=== PATIENT | male | born 1960 | race African-American/Black ===

== ENCOUNTER 2017-11-02 22:25 | Emergency (ER) | payer OTHER ==
[2017-11-02] MEDS ORDERED: MAGNESIUM SULF 50% (8.12 MEQ/2 ML-1 GM VIAL) IVPB ONE (22:41)
[2017-11-02] MEDS ORDERED: ALBUTEROL SO4 2.5/IPRATROPIUM 0.5 INH SOL 3 ML VIAL.NEB. NEB ONE ×3 (22:41→23:16)
[2017-11-02] MEDS ORDERED: ASPIRIN 325 MG TABLET PO ONE (22:41)
[2017-11-02 22:43] VITALS: BP 155/93; PULSE 68; TEMP 98.4; BMI 22.1
[2017-11-02] MEDS ORDERED: DEXAMETHASONE SOD PHOSPHATE 10 MG/1 ML VIAL ONE (22:47)
--- NOTE | 2017-11-02 22:49 | PDOC ---
History of Present Illness - General Chief Complaint: Syncope/Near Syncope Stated Complaint: SYNCOPE Time Seen by Provider: 11/02/17 22:34 History Source: Patient, EMS Exam Limitations: No Limitations - History of Present Illness Initial Comments: This is a 57 YOM with h/o COPD (never intubated or admitted to ICU, takes Symbicort and prn Albuterol with neb at home, also has Rx for prn Prednisone and has been taking it for the past few days d/t worsening SOB) and flu 2 weeks ago (states resolved) who was BIBA for syncope and subsequent SOB/wheezing/ chest tightness. The states that her was watching the Super[employer]l just [employer] and he randomly passed out without any preceding symptoms (no SOB, lightheadedness, chest pain, palpitations, or any other symptoms). He had a witnessed atraumatic slump to the ground and per the did not hit his head. The notes that he tensed all his muscles, but had no jerking movements, and he was unresponsive for an estimated 2 minutes. When he regained consciousness, he was acting per his normal baseline and was not confused. However, he did had SOB, wheezing, leg cramping, leg tingling, and chest tightness (5/10 constant non-radiating substernal). EMS placed him on 12 liters O2 and subsequently measured his pulse ox to be 97%. They found him to be wheezy and gave him a total of 3 Combi-Vents and 10 mg Decadron. Past History - Past Medical History Allergies/Adverse Reactions: Allergies Allergy/AdvReac Type Severity Reaction Status Date / Time No Known Allergies Allergy Verified 11/02/17 22:32 Home Medications: Ambulatory Orders Albuterol Sulfate Inhaler - [Ventolin Hfa *Inhaler*] 2 inh IH Q4H PRN 11/21/11 Ipratropium/Albuterol Sulfate [Duoneb 0.5 mg-3 mg/3 ml Soln] 3 ml NEB BID PRN Prednisone [Deltasone -] 60 mg PO ONCE #7 tablet 11/21/11 Asthma: Yes - Suicide/Smoking/Psychosocial Hx Smoking Status: Yes Smoking History: Unknown if ever smoked Have you smoked in the past 12 months: No Number of Cigarettes Smoked Daily: 2 Information on smoking cessation initiated: No Hx Alcohol Use: No Drug/Substance Use Hx: No Review of Systems - Review of Systems Able to Perform ROS?: Yes Constitutional: No: Chills, Fever, Unexplained wgt Loss HEENTM: No: Nose Congestion, Throat Pain Respiratory: Yes: Cough, Shortness of Breath, Wheezing, Productive cough. No: Stridor Cardiac (ROS): Yes: Chest Pain, Syncope. No: Edema, Palpitations ABD/GI: No: Constipated, Diarrhea, Nausea, Vomiting : No: Burning, Dysuria Musculoskeletal: Yes: Other (leg cramps (both)). No: Back Pain, Neck Pain Integumentary: No: Bruising, Rash Neurological: Yes: Headache, Tingling (both legs). No: Numbness, Weakness, Dizziness Endocrine: No: Unexplained Weight Gain, Unexplained Weight Loss *Physical Exam - Vital Signs Last Vital Signs Temp Pulse Resp BP Pulse Ox 98.4 F 68 24 155/93 100 11/02/17 22:32 11/02/17 22:32 11/02/17 22:32 11/02/17 22:32 11/02/17 22:32 Heart Score/ECG Review - History History: Moderately suspicious - Electrocardiogram EKG: Non specific repolarization disturbance - Age Age: 45-65 - Risk Factors Risk Factors Heart Score: Yes Smoking History Based on the list above the patient has:: 1-2 risk factors Medical Decision Making - Medical Decision Making This is a 57 YOM with h/o COPD who p/w syncope and subsequent SOB, wheezing, and chest tightness. On exam BP is 155/93 otherwise VS wnl, on non-rebreather at 12 L initially, diffuse bilateral exp wheezing, wet cough. DDX IBNLT COPD exacerbation, CHF exacerbation, PNA/bronchitis, ACS, arrhythmia, , PE, PTX, atelectasis, etc. Ordered is CBCD CMP Mg Coags T&S Cardiac panel BNP D-dimer UA Cx UDS ABG Cx EKG CXR Head CT DuoNebx3, Mg Sulf. 11/02/17 23:07 EKG with some anterior ST segment abnormalities not meeting 1mm box criteria for WALE but will give Pt NTG SL. Will repeat EKG in 20 min. 11/02/17 23:42 EKG is being repeated. Patient is adamantly refusing any blood draw. Counseled by multiple ED staff including myself that he could be having a serious heart issue and we need labs. He continues to refuse, says he does not do needles, does not want the pain. Will do as much for the patient as possible without the bloodwork. SOB had improved and he is not on supplemental O2 at this time. *DC/Admit/Observation/Transfer - Referrals Referrals: Jose Mei [Primary Care Provider] - - Patient Instructions - Post Discharge Activity
[2017-11-02] MEDS ORDERED: NITROGLYCERIN SUBLINGUAL 1/200 0.3 MG BTL SL ONE (23:11)
[2017-11-02] MEDS ORDERED: ASPIRIN 325 MG TABLET ONE (23:16)
[2017-11-02] MEDS ORDERED: MAGNESIUM SULF 50% (8.12 MEQ/2 ML-1 GM VIAL) ONE (23:16)
--- NOTE | 2017-11-03 00:35 | PDOC ---
*Physical Exam - Vital Signs Last Vital Signs Temp Pulse Resp BP Pulse Ox 98.4 F 68 24 155/93 100 11/02/17 22:32 11/02/17 22:32 11/02/17 22:32 11/02/17 22:32 11/02/17 22:32 ED Treatment Course - LABORATORY CBC & Chemistry Diagram: 11/03/17 00:15 11/03/17 00:15 - Medications Given in the ED: ED Medications Discontinued Medications Generic Name Dose Route Start Last Admin Trade Name Jaquelin PRN Reason Stop Dose Admin Albuterol/Ipratropium 3 amp 11/02/17 22:41 11/02/17 23:57 Duoneb - NEB 11/02/17 22:42 3 amp ONCE ONE Administration Aspirin 325 mg 11/02/17 22:41 11/02/17 23:57 Asa - PO 11/02/17 22:42 325 mg ONCE ONE Administration Magnesium Sulfate 2 gm 11/02/17 22:41 11/02/17 23:57 Magnesium Sulfate IVPB 11/02/17 22:42 2 gm ONCE ONE Administration Nitroglycerin 0.3 mg 11/02/17 23:11 11/02/17 23:58 Nitrostat - SL 11/02/17 23:12 0.3 mg ONCE ONE Administration Medical Decision Making - Medical Decision Making 11/03/17 00:36 Patient signed out by Dr. Perrin. Patient is a 57 y.o. male who presents with a witnessed collapse with 2 minutes of LOC - possibly arrthymia vs. DC vs.neurogenic CT Head, labs pending. *DC/Admit/Observation/Transfer - Discharge Dispostion Disposition: AGAINST MEDICAL ADVICE Condition at time of disposition: Good Admit: No - Referrals Referrals: Jose Mei [Primary Care Provider] - - Patient Instructions Printed Discharge Instructions: DI for Syncope in Adults (Fainting) Additional Instructions: You are leaving [place], [place] against medical advice. The risks of your leaving before full medical evaluation include heart attack, seizure, coma and . Return to the hospital should you experience any new/concerning/worsening symptoms. - Post Discharge Activity
[2017-11-03 00:43] LABS: BASO % 0.3 % (0-2.0); EOS % 0.2 % (0-4.5); HEMATOCRIT 42.7 % (35.4-49); MCH 27.9 pg (25.7-33.7); MCHC 32.7 g/dl (32.0-35.9); MEAN CELL VOLUME 85.4 fl (80-96); MEAN PLT VOLUME 9.3 fl (7.5-11.1); MONO % 2.3 % (3.8-10.2); NEUT % 91.2 % (42.8-82.8); PLATELET COUNT 229 K/MM3 (134-434); WHITE BLOOD COUNT 6.2 K/mm3 (4.0-10.0)
[2017-11-03 01:04] LABS: INR 1.05 (0.82-1.09); PROTHROMBIN TIME (PATIENT) 11.9 SEC (9.98-11.88)
[2017-11-03 01:19] LABS: URINE APPEARANCE CLEAR; URINE BILIRUBIN NEGATIVE (NEGATIVE); URINE BLOOD NEGATIVE (NEGATIVE); URINE COLOR STRAW; URINE GLUCOSE (UA) NEGATIVE (NEGATIVE); URINE KETONE NEGATIVE (NEGATIVE); URINE LEUK ESTERASE NEGATIVE (NEGATIVE); URINE NITRITE NEGATIVE (NEGATIVE); URINE PROTEIN NEGATIVE (NEGATIVE)
[2017-11-03 01:23] LABS: ALBUMIN 3.7 g/dl (3.4-5.0); ANION GAP 5 (8-16); BILIRUBIN,TOTAL 0.3 mg/dL (0.2-1.0); BLOOD UREA NITROGEN 16 mg/dL (7-18); CALCIUM 8.5 mg/dL (8.5-10.1); CHLORIDE 106 mmol/L (98-107); CO2 31 mmol/L (21-32); CREATININE 1.3 mg/dL (0.7-1.3); GLUCOSE,RANDOM 104 mg/dL (74-106); MAGNESIUM 2.2 mg/dL (1.8-2.4); POTASSIUM 3.8 mmol/L (3.5-5.1); SGOT/AST 16 U/L (15-37); SGPT/ALT 16 U/L (12-78); SODIUM 142 mmol/L (136-145); TOT PROT 6.8 g/dl (6.4-8.2)
[2017-11-03 01:26] LABS: ALK PHOS 97 U/L (45-117)
--- NOTE | 2017-11-03 01:29 | PDOC ---
Attending Attestation - Resident Resident Name: AydinDorota - ED Attending Attestation I have performed the following: I have examined & evaluated the patient, The case was reviewed & discussed with the resident, I agree w/resident's findings & plan, Exceptions are as noted - HPI HPI: 11/03/17 01:28 57 yo male BIBA after his witnessed a syncopal episode - Physicial Exam PE: 11/03/17 01:29 Thin 57 yo male p/w complaint of chest pain head ncat neck supple lungs cta b/l cvs [id number] abd nontender ext no pitting edema neuro axox3,no gross focal deficits skin warm,dry psych pt upset that he needs blood work ,the paramedics placed heplock and he doesn't want to be "stuck" again - Medical Decision Making 11/03/17 01:31 ct head no acute intracranial pathology 11/03/17 02:16 pt refusing any further intervention,wants to leave AMA
[2017-11-03 01:35] LABS: METHADONE, UR NEGATIVE ng/ml (CUTOFF=300); OPIATES, URI NEGATIVE ng/ml (CUTOFF=300); PHENCYCLIDINE,URINE NEGATIVE ng/ml (CUTOFF=25); URINE AMPHETAMINES NEGATIVE ng/ml (CUTOFF=500); URINE BARBITURATES NEGATIVE ng/ml (CUTOFF=200); URINE BENZODIAZEPINES NEGATIVE ng/ml (CUTOFF=200)
[2017-11-03 01:36] LABS: COCAINE, UR POSITIVE ng/ml (CUTOFF=300)
--- NOTE | 2017-11-03 12:43 | EKG ---
Test Reason : Blood Pressure : / mmHG Vent. Rate : 069 BPM Atrial Rate : 069 BPM P-R Int : 124 ms QRS Dur : 106 ms QT Int : 428 ms P-R-T Axes : 077 075 052 degrees QTc Int : 458 ms NORMAL SINUS RHYTHM NONSPECIFIC T WAVE ABNORMALITY ABNORMAL ECG WHEN COMPARED WITH ECG OF 02-NOV-2017 22:48, NO SIGNIFICANT CHANGE WAS FOUND Confirmed by CHINO CHRISTINA MD ([id number]) on 11/03/2017 12:43:14 PM Referred By: Confirmed By:CHINO CHRISTINA MD
== END 2017-11-03 03:00 | disposition left against medical advice (07) ==
LOC: JER 22:25
PROC: 3E0F7GC Introduction of Other Therapeutic Substance into Respiratory Tract, Via Natural or Artificial Opening (ICD-10-PCS; principal; 2017-11-02)
PROC: 3E033GC Introduction of Other Therapeutic Substance into Peripheral Vein, Percutaneous Approach (ICD-10-PCS; 2017-11-02)
DX: R55 Syncope and collapse (principal)
CPT/HCPCS: 36415; 70450-TC; 71045-TC; 80053; 80307; 81003; 82550; 82553; 83735; 83880; 84484; 85025; 85379; 85610; 86850; 86900; 86901; 93005; 93010; 94640; 96374; 99281-25

== ENCOUNTER 2019-04-18 21:55 | Emergency (ER) | payer OTHER ==
[2019-04-18] MEDS ORDERED: ONDANSETRON 4 MG/2 ML VIAL IVPUSH ONE (22:22)
[2019-04-18] MEDS ORDERED: SODIUM CHLORIDE 0.9% 500 ML INFUS.BAG IV ONE (22:22)
[2019-04-18] MEDS ORDERED: METHOCARBAMOL 500 MG TABLET PO ONE (22:30)
[2019-04-18] MEDS ORDERED: IBUPROFEN 600 MG TABLET (FP) PO ONE ×2 (22:30→23:31)
[2019-04-18] MEDS ORDERED: DEXAMETHASONE LIQUID 0.5 MG/5 ML 240 ML BULK BOTTLE PO ONE (22:31)
[2019-04-18] MEDS ORDERED: ALBUTEROL SO4 2.5/IPRATROPIUM 0.5 INH SOL 3 ML VIAL.NEB. NEB ONE ×2 (22:31→23:30)
--- NOTE | 2019-04-18 23:24 | PDOC ---
History of Present Illness - General Stated Complaint: GENERALIZED PAIN,WEAKNESS Time Seen by Provider: 04/18/19 22:12 History Source: Patient, Spouse Exam Limitations: No Limitations - History of Present Illness Initial Comments: 04/18/19 23:19 58YOM with h/o COPD, asthma, and sciatica who p/w nausea, vomiting (states unable to keep anything down), worsening head-to-toe body aches, exacerbated chronic cough and SOB, right thigh pain similar to his prior sciatica, generalized weakness, headache, and lightheadedness worsening for the past several days. He notes having used his normal breathing treatments at home without change in his breathing status. He has been getting lightheaded particularly on standing. He denies any new f/c, diarrhea, constipation, chest pain, abdominal pain, new back pain, dysuria, n/t/w focally, or other new symptoms. Past History - Past Medical History Allergies/Adverse Reactions: Allergies Allergy/AdvReac Type Severity Reaction Status Date / Time No Known Allergies Allergy Verified 04/19/19 01:07 Home Medications: Ambulatory Orders Albuterol Sulfate Inhaler - [Ventolin Hfa *Inhaler*] 2 inh IH Q4H PRN 11/21/11 Ipratropium/Albuterol Sulfate [Duoneb 0.5 mg-3 mg/3 ml Soln] 3 ml NEB BID PRN predniSONE [Deltasone -] 60 mg PO ONCE #7 tablet 11/21/11 Aspirin 81 mg PO DAILY 04/19/19 Atorvastatin Ca [Lipitor] 10 mg PO HS 04/19/19 Fluticasone/Umeclidin/Vilanter [Trelegy Ellipta 100-62.5-25] 1 each IH DAILY Multivit with Iron,Minerals [Complete Senior] 1 each PO DAILY 04/19/19 Primidone 50 mg PO DAILY 04/19/19 Roflumilast [Daliresp -] 500 mcg PO DAILY 04/19/19 Asthma: Yes - Suicide/Smoking/Psychosocial Hx Smoking Status: Yes Smoking History: Unknown if ever smoked Have you smoked in the past 12 months: No Number of Cigarettes Smoked Daily: 2 Hx Alcohol Use: No Drug/Substance Use Hx: No Review of Systems - Review of Systems Able to Perform ROS?: Yes Comments:: 04/18/19 23:22 GEN: malaise, generalized weakness, no fever, chills, or weight change HEENT: no ear pain, sore throat, vision change, or eye pain CV: lightheadedness, no chest pain, palpitations, syncope, or edema RESP: cough, wheezing, SOB GI: nausea, vomiting, no abdominal pain, diarrhea, constipation, or white/black/ bloody stool : no dysuria, hematuria, incontinence, retention, bleeding, or discharge MSK: right thigh pain/sciatica, no neck/back pain, muscle weakness/pain, or joint swelling/pain NEURO: headache, no seizure, vertigo, numbness, tingling, or focal weakness PSYCH: no substance use, no behavior change SKIN: no jaundice, no rash ROS otherwise negative except as noted in HPI *Physical Exam - Physical Exam Comments: 04/18/19 23:23 GENERAL: nontoxic-appearing, A/Ox4, no distress, answers questions appropriately , accompanied by HEENT: PERRLA, EOMI, a bit dry mucous membranes NECK/BACK: no midline ttp, no spinal stepoff or deformity, no hematoma, full ROM , neck supple CARDIOVASCULAR: regular rate/rhythm, normal S1S2, no MGR, strong peripheral pulses, capillary refill <2 seconds, extremities wwp, no edema LUNGS/RESPIRATORY: no respiratory distress, diffuse faint expiratory wheezes GI/ABDOMEN: symmetric [id number], normoactive BS, soft, no ttp, no midline pulsatile masses : no CVA tenderness EXTREMITIES: no muscle atrophy, no acute deformity SKIN: warm and dry, no pallor, no jaundice, no rash, no bruising, no skin breakdown, no cuts, no lesions NEUROLOGICAL: GCS 15, CN II-XII grossly intact, 5/5 strength proximally and distally, no facial droop, gait not tested ED Treatment Course - LABORATORY CBC & Chemistry Diagram: 04/18/19 23:40 04/18/19 23:40 - RADIOLOGY Radiology Studies Ordered: Category Date Time Status CHEST X-RAY PORTABLE* [RAD] Stat Radiology 04/18/19 22:22 Ordered Medical Decision Making - Medical Decision Making 04/18/19 23:24 58YOM with h/o COPD and asthma who p/w several complaints including n/v, SOB/ cough/wheezing, body aches, and headache. Exam: As noted in Physical Exam section. DDX IBNLT: COPD exacerbation, bronchitis, PNA, viral URI, viral GI syndrome, UTI W/U ordered: Labs as noted below, EKG, CXR TX ordered: IVF, Motrin EKG: Reviewed; results as noted in ECG Review section. CXR: Possible early RLL consolidation Laboratory Tests 04/18/19 04/18/19 04/18/19 23:40 23:40 23:40 WBC 5.8 RBC 5.38 Hgb 14.8 Hct 44.7 MCV 83.1 MCH 27.5 MCHC 33.1 RDW 14.8 Plt Count 250 MPV 9.7 Absolute Neuts (auto) 4.2 Neutrophils % 71.5 D Lymphocytes % 15.9 D Monocytes % 11.5 H D Eosinophils % 0.6 D Basophils % 0.5 Nucleated RBC % 0 Sodium 142 Potassium 3.9 Chloride 110 H Carbon Dioxide 24 Anion Gap 8 BUN 14.6 Creatinine 1.1 Est GFR (CKD-EPI)AfAm 86.52 Est GFR (CKD-EPI)NonAf 74.65 Random Glucose 103 Calcium 8.7 Magnesium 2.1 Total Bilirubin 0.6 AST 16 ALT 18 Alkaline Phosphatase 87 Creatine Kinase 144 Troponin I < 0.02 B-Natriuretic Peptide 108.5 Total Protein 7.1 Albumin 3.9 Reassessment: Patient states feels better, comfortable with plan to go home. DISCHARGE This patient has gotten significant relief of symptoms while in the ED. On last reassessment, vitals are wnl, pain is reasonably controlled, and exam is benign. Workup is not concerning for emergency-level pathology at this time. This patient is appropriate for discharge with close outpatient follow up. Azithromycin first dose has been given in the ED and E-Rx sent. The family is comfortable with this plan and will follow up with their primary care provider in 1-3 days. They agree to return to the ED with any new/worsening symptoms. Specific return precautions are discussed and they will come back to the ER if necessary. *DC/Admit/Observation/Transfer Diagnosis at time of Disposition: COPD exacerbation, Bronchitis Sciatica Qualifiers: Laterality: right Qualified Code(s): M54.31 - Sciatica, right side - Discharge Dispostion Disposition: HOME Condition at time of disposition: Stable Decision to Admit order: No - Prescriptions Prescriptions: Azithromycin [Zithromax Tri-Frank (3 DAYS) -] 500 mg PO DAILY #3 tablet Ibuprofen [Motrin -] 600 mg PO TID #21 tablet - Referrals Referrals: [facility] [Provider Group] - Patient Instructions Additional Instructions: You were seen in the ER for headache, shortness of breath, cough, head-to-toe body aches, and right leg pain. We did an exam, imaging studies, and an electrocardiogram. We believe you may have an early pneumonia and we gave you the first dose of antibiotics here in the ER. We sent the prescription for the remaining course of antibiotic to your pharmacy. Please take these antibiotics as prescribed, whether or not you feel better. After our assessment, we do not believe you are having a medical emergency at this time, and we believe you are safe to go home. Please follow up with your primary care provider in 1-3 days. Call their clinic, tell them you were seen in the er, and tell them you need a follow-up. If you have any new or worsening symptoms, please come back to the ER at any time (24 hours a day). If you are having severe or life threatening symptoms, or symptoms that make it unsafe to drive or have someone drive you, please call 911. - Post Discharge Activity
[2019-04-18] MEDS ORDERED: DEXAMETHASONE SOD PHOSPHATE 10 MG/1 ML VIAL ONE (23:31)
[2019-04-18] MEDS ORDERED: ONDANSETRON 4 MG/2 ML VIAL ONE (23:31)
[2019-04-18] MEDS ORDERED: METHOCARBAMOL 500 MG TABLET ONE (23:31)
[2019-04-18 23:53] LABS: LYMPH % 15.9 % (8-40); MEAN PLT VOLUME 9.7 fl (7.5-11.1); WHITE BLOOD COUNT 5.8 K/mm3 (4.0-10.0)
--- NOTE | 2019-04-19 00:14 | PDOC ---
Documentation entered by Elin Burgos SCRIBE, acting as scribe for Delicia Dumont MD. Delicia Dumont MD: This documentation has been prepared by the Aubrey gan Nirvannie, SCRIBE, under my direction and personally reviewed by me in its entirety. I confirm that the documentation accurately reflects all work, treatment, procedures, and medical decision making performed by me. Attending Attestation - Resident Resident Name: AydinDorota - ED Attending Attestation I have performed the following: I have examined & evaluated the patient, The case was reviewed & discussed with the resident, I agree w/resident's findings & plan - HPI HPI: 04/18/19 22:45 The patient is a 58 year old male, with a significant past medical history of COPD/Emphysema, sciatica, who presents to the emergency department with, diffuse body aches, productive cough, and vomiting. He denies any recent chest pain or palpitations. Allergies: NKDA - Physicial Exam PE: 04/18/19 22:45 GENERAL: Awake, alert, and fully oriented, in no acute distress HEAD: No signs of trauma EYES: PERRLA, EOMI, sclera anicteric, conjunctiva clear ENT: +Uma to the hard palette. Auricles normal inspection, hearing grossly normal, nares patent. NECK: Normal ROM, supple, no lymphadenopathy, JVD, or masses LUNGS: +Diffuse expiratory wheezing. HEART: Regular rate and rhythm, normal S1 and S2, no murmurs, rubs or gallops ABDOMEN: Soft, nontender, normoactive bowel sounds. No guarding, no rebound. No masses EXTREMITIES: Normal range of motion, no edema. No clubbing or cyanosis. No cords, erythema, or tenderness NEUROLOGICAL: Cranial nerves II through XII grossly intact. Normal speech SKIN: Warm, Dry, normal turgor, no rashes or lesions noted. - Medical Decision Making 04/19/19 00:25 CHEMISTRY IS NORMAL CBC PENDING HIV TEST IS PENDING; PT'S IS HIV+ AND HE WAS LAST TESTED 6 MONTHS. 04/19/19 00:48 cbc normal 04/19/19 03:55 HIV negative; pt feeling better and he is ready to go home. He is awaiting a medicaid cab to go home with.
[2019-04-19 00:20] LABS: ALBUMIN 3.9 g/dl (3.4-5.0); ALK PHOS 87 U/L (45-117); ANION GAP 8 MMOL/L (8-16); BILIRUBIN,TOTAL 0.6 mg/dL (0.2-1); BLOOD UREA NITROGEN 14.6 mg/dL (7-18); CALCIUM 8.7 mg/dL (8.5-10.1); CHLORIDE 110 mmol/L (98-107); CO2 24 mmol/L (21-32); CREATININE 1.1 mg/dL (0.55-1.3); GLUCOSE,RANDOM 103 mg/dL (74-106); MAGNESIUM 2.1 mg/dL (1.8-2.4); POTASSIUM 3.9 mmol/L (3.5-5.1); SGOT/AST 16 U/L (15-37); SGPT/ALT 18 U/L (13-61); SODIUM 142 mmol/L (136-145); TOT PROT 7.1 g/dl (6.4-8.2)
[2019-04-19 00:38] LABS: BASO % 0.5 % (0-2.0); EOS % 0.6 % (0-4.5); HEMATOCRIT 44.7 % (35.4-49); HEMOGLOBIN 14.8 GM/dL (11.7-16.9); MCH 27.5 pg (25.7-33.7); MCHC 33.1 g/dl (32.0-35.9); MEAN CELL VOLUME 83.1 fl (80-96); MONO % 11.5 % (3.8-10.2); NEUT % 71.5 % (42.8-82.8); PLATELET COUNT 250 K/MM3 (134-434); RBC 5.38 M/mm3 (4.00-5.60); RDW 14.8 % (11.9-15.9)
[2019-04-19] MEDS ORDERED: AZITHROMYCIN 250 MG TABLET PO ONE (00:50)
[2019-04-19] MEDS ORDERED: AZITHROMYCIN 500 MG TABLET PO ONE (00:59)
[2019-04-19] MEDS ORDERED: AZITHROMYCIN 250 MG TABLET ONE (01:09)
[2019-04-19 01:32] VITALS: BMI 22.1
[2019-04-19] MEDS ORDERED: METOCLOPRAMIDE HCL 10 MG TABLET (FP) PO ONE (01:32)
[2019-04-19 01:50] VITALS: BP 137/98; PULSE 72; TEMP 98.1
--- NOTE | 2019-04-19 09:23 | EKG ---
Test Reason : Blood Pressure : / mmHG Vent. Rate : 062 BPM Atrial Rate : 062 BPM P-R Int : 136 ms QRS Dur : 102 ms QT Int : 428 ms P-R-T Axes : 078 077 062 degrees QTc Int : 434 ms NORMAL SINUS RHYTHM NONSPECIFIC ST AND T WAVE ABNORMALITY ABNORMAL ECG WHEN COMPARED WITH ECG OF 02-NOV-2017 23:44, NO SIGNIFICANT CHANGE WAS FOUND Confirmed by ANNE-MARIE GIRARD MD ([id number]) on 04/19/2019 9:22:51 AM Referred By: Confirmed By:ANNE-MARIE GIRARD MD
== END 2019-04-19 01:58 | disposition home or self-care (01) ==
LOC: JER 21:55
PROC: 3E0337Z Introduction of Electrolytic and Water Balance Substance into Peripheral Vein, Percutaneous Approach (ICD-10-PCS; principal; 2019-04-18)
PROC: 3E033GC Introduction of Other Therapeutic Substance into Peripheral Vein, Percutaneous Approach (ICD-10-PCS; 2019-04-18)
PROC: 3E0F7GC Introduction of Other Therapeutic Substance into Respiratory Tract, Via Natural or Artificial Opening (ICD-10-PCS; 2019-04-18)
DX: J40 Bronchitis, not specified as acute or chronic (principal); J44.1 Chronic obstructive pulmonary disease with (acute) exacerbation; M54.31 Sciatica, right side
CPT/HCPCS: 36415; 71045-TC-FY; 80053; 82550; 83735; 83880; 84484; 85025; 87389; 93005; 93010; 94640; 96374; 99284-25